=== PATIENT | female | born 1940 | race African-American/Black ===

== ENCOUNTER 2018-02-10 02:43 | Emergency (ER) | payer SELFPAY ==
[~2018-02-10] VITALS: Ht 160 cm; Wt 36.3 kg
[2018-02-10 02:43] VITALS: BP 0/0
[2018-02-10] MEDS ORDERED: CALCIUM CHLOR(10%) 100MG/ML 10ML SYRINGE IV ONE (02:57)
[2018-02-10] MEDS ORDERED: EPINEPHrine HCL 1 MG/10 ML SYRG IV ONE (02:57)
[2018-02-10] MEDS ORDERED: SODIUM BICARBONATE 8.4% INJ 50ML SYRINGE IV ONE (02:57)
== END 2018-02-10 02:58 | disposition expired ==
LOC: EDBD 02:43 → EDSEX 02:43 → ER 02:56
DX: I46.9 Cardiac arrest, cause unspecified (principal)
CPT/HCPCS: 31500; 92950; 99285; J0171